=== PATIENT | female | born 1930 | race Native Hawaiian/Other Pacific Islander ===

== ENCOUNTER 2016-06-16 07:52 | Outpatient (CLI) | payer OTHER ==
[~2016-06-16 07:52] MED LIST: B-12500 MC1 SL; CIPRO500 MG PO; COMBIGAN0.2 MG/0.5 OPTH; DIAZ5TAB20 PO; FLUT0.05 NAS; GLIP10TA55 PO; GLIP2.5T3 PO; GLUCOPHAGE1000 MG PO; LEVAQUIN500 MG OR; LISI20TA11 PO; LISITAB PO; LOPRESSOR100 MG PO; LUMIGAN0.01 % OPTH; MECLIZINE25 MG OR; METO100T37 PO; METR250T19 PO; NEXIUM40 M1 PO; NITR100C56 PO; PANT40TA PO; PROM25TA52 PO; RANI150T78 PO
== END 2016-06-16 18:57 | disposition home or self-care (01) ==
LOC: CT 07:52
DX: N28.89 Other specified disorders of kidney and ureter (principal)

== ENCOUNTER 2017-01-28 08:15 | Outpatient (CLI) | payer OTHER ==
[2017-01-28 08:50] LABS: PLATELET COUNT 136 K/uL (152-353)
[2017-01-28 09:22] LABS: SODIUM 137 mmol/L (136-145)
== END 2017-01-28 19:06 | disposition home or self-care (01) ==
LOC: LABW 08:15
PROVIDERS: Physician Assistant
DX: E11.40 Type 2 diabetes mellitus with diabetic neuropathy, unspecified (principal); D69.6 Thrombocytopenia, unspecified; I10 Essential (primary) hypertension; E03.8 Other specified hypothyroidism
CPT/HCPCS: 36415; 80053; 80061; 82607; 83735; 84439; 84443; 85027

== ENCOUNTER 2017-06-30 10:13 | Outpatient (CLI) | payer OTHER | END 2017-06-30 11:15 | disposition home or self-care (01) | LOC: RAD 10:13 | DX: J40 Bronchitis, not specified as acute or chronic (principal) ==

== ENCOUNTER 2017-07-19 10:01 | Outpatient (CLI) | payer OTHER | END 2017-07-19 22:54 | disposition home or self-care (01) | LOC: LAB 10:01 | DX: R30.0 Dysuria (principal) | CPT/HCPCS: 87077; 87086; 87088; 87186 ==

== ENCOUNTER 2017-12-14 08:24 | Outpatient (CLI) | payer OTHER ==
[2017-12-14 08:46] LABS: PLATELET COUNT 148 K/uL (152-353)
[2017-12-14 09:08] LABS: POTASSIUM 3.8 mmol/L (3.6-5.2)
== END 2017-12-14 19:15 | disposition home or self-care (01) ==
LOC: LABW 08:24
PROVIDERS: Internal Medicine
DX: E11.9 Type 2 diabetes mellitus without complications (principal); R30.0 Dysuria
CPT/HCPCS: 36415; 80053; 80061; 81000; 82043; 82570; 83036; 84443; 85027; 87077; 87086; 87088; 87186

== ENCOUNTER 2018-01-20 22:03 | Emergency (ER) | payer OTHER ==
[~2018-01-20] VITALS: Ht 162.6 cm; Wt 61.7 kg
[2018-01-20 22:55] LABS: PLATELET COUNT 134 K/uL (152-353)
[2018-01-20 23:05] LABS: POTASSIUM 3.4 mmol/L (3.6-5.2)
[2018-01-21 01:50] VITALS: BP 163/69; TEMP 97.7
== END 2018-01-21 01:51 | disposition home or self-care (01) ==
LOC: ED 22:03
DX: K52.89 Other specified noninfective gastroenteritis and colitis (principal)
CPT/HCPCS: 36415; 51702; 80053; 81000; 85027; 87324; 87449; 96360; 96361; 96365; 99284

== ENCOUNTER 2018-01-26 12:22 | Outpatient (CLI) | payer OTHER | END 2018-01-26 20:36 | disposition home or self-care (01) | LOC: LAB 12:22 | DX: A09 Infectious gastroenteritis and colitis, unspecified (principal) | CPT/HCPCS: 82272; 83630; 87015; 87045; 87324; 87328; 87329; 87449; 87899 ==

== ENCOUNTER 2018-03-01 08:37 | Outpatient (CLI) | payer OTHER ==
[2018-03-01 09:16] LABS: PLATELET COUNT 154 K/uL (152-353)
[2018-03-01 09:46] LABS: POTASSIUM 3.8 mmol/L (3.6-5.2)
== END 2018-03-01 20:29 | disposition home or self-care (01) ==
LOC: LABW 08:37
PROVIDERS: Internal Medicine
DX: Z00.00 Encounter for general adult medical examination without abnormal findings (principal); E11.9 Type 2 diabetes mellitus without complications
CPT/HCPCS: 36415; 80053; 80061; 81000; 82043; 82570; 83036; 84443; 85027

== ENCOUNTER 2018-06-08 10:23 | Outpatient (CLI) | payer OTHER | END 2018-06-08 20:33 | disposition home or self-care (01) | LOC: LAB 10:23 | DX: N30.90 Cystitis, unspecified without hematuria (principal) | CPT/HCPCS: 87077; 87086; 87088; 87186 ==

== ENCOUNTER 2018-09-08 14:18 | Emergency (ER) | payer OTHER ==
[~2018-09-08] VITALS: Ht 162.6 cm; Wt 62.1 kg
[2018-09-08 14:39] VITALS: TEMP 98.1
[2018-09-08 16:15] LABS: PLATELET COUNT 142 K/uL (152-353)
[2018-09-08 18:05] VITALS: BP 168/74
== END 2018-09-08 18:13 | disposition home or self-care (01) ==
LOC: ED 14:18
PROVIDERS: Emergency Medicine
DX: N39.0 Urinary tract infection, site not specified (principal); W18.39XA Other fall on same level, initial encounter; Y92.89 Other specified places as the place of occurrence of the external cause
CPT/HCPCS: 80053; 81000; 85027; 99283

== ENCOUNTER 2018-09-13 02:19 | Inpatient (IN) | payer OTHER ==
[~2018-09-13] VITALS: Ht 162.6 cm; Wt 60.8 kg
[2018-09-13 02:29] VITALS: BP 112/87; TEMP 97.7
[2018-09-13 04:36] LABS: PLATELET COUNT 127 K/uL (152-353)
[2018-09-13 04:51] LABS: POTASSIUM 3.7 mmol/L (3.6-5.2)
[2018-09-13 07:00] VITALS: BP 172/82
[2018-09-13 08:00] VITALS: BP 168/80
[2018-09-13 16:50] VITALS: BP 100/60; TEMP 97.6; Ht 162.6 cm; Wt 60.8 kg
[2018-09-13] MEDS ORDERED: GABA400C2 PO ×3 (17:17→17:19)
[2018-09-13] MEDS ORDERED: GLIP10TA55 PO (17:20)
[2018-09-13] MEDS ORDERED: METFORMIN ER1000 MG PO (17:21)
[2018-09-13] MEDS ORDERED: METO100T37 PO (17:22)
[2018-09-13] MEDS ORDERED: LISI20TA11 PO (17:22)
[2018-09-13] MEDS ORDERED: PRINIVIL10 MG PO (17:24)
[2018-09-13 20:00] VITALS: BP 177/79; TEMP 98.7
[2018-09-14] VITALS (7 sets, daily range): BP systolic 124–216; BP diastolic 57–108; TEMP 97.6–98.1
[2018-09-14 04:17] LABS: PLATELET COUNT 136 K/uL (152-353)
[2018-09-14 04:28] LABS: POTASSIUM 3.6 mmol/L (3.6-5.2)
[2018-09-15] VITALS (7 sets, daily range): BP systolic 159–201; BP diastolic 64–100; TEMP 97.8–98.6
[2018-09-15 05:44] LABS: PLATELET COUNT 127 K/uL (152-353)
[2018-09-15 06:05] LABS: POTASSIUM 3.6 mmol/L (3.6-5.2)
[2018-09-16] VITALS (10 sets, daily range): BP systolic 160–220; BP diastolic 69–101; TEMP 97.8–98.4
[2018-09-16 05:17] LABS: PLATELET COUNT 121 K/uL (152-353)
[2018-09-16 05:24] LABS: POTASSIUM 3.2 mmol/L (3.6-5.2)
[2018-09-17 04:00] VITALS: BP 203/93; TEMP 98
[2018-09-17 04:26] LABS: PLATELET COUNT 183 K/uL (152-353)
[2018-09-17 05:12] LABS: POTASSIUM 3.2 mmol/L (3.6-5.2)
[2018-09-17 08:00] VITALS: BP 186/83; TEMP 97.5
[2018-09-17 12:00] VITALS: BP 161/84; TEMP 98.4
[2018-09-17 16:00] VITALS: BP 166/75; TEMP 97.9
[2018-09-17 20:10] VITALS: BP 129/75; TEMP 97.9
[2018-09-18] VITALS: BP 162/84; TEMP 98.9
[2018-09-18 04:00] VITALS: BP 164/71; TEMP 98.3
[2018-09-18 05:46] LABS: PLATELET COUNT 115 K/uL (152-353)
[2018-09-18 05:48] LABS: POTASSIUM 3.2 mmol/L (3.6-5.2)
[2018-09-18 08:00] VITALS: BP 173/69; TEMP 98.3
[2018-09-18 12:00] VITALS: BP 153/67; TEMP 97.9
[2018-09-18 16:00] VITALS: BP 127/56; TEMP 97.6
[2018-09-18 20:00] VITALS: BP 185/71; TEMP 99.1
[2018-09-19] VITALS: BP 168/73; TEMP 98.6
[2018-09-19 04:00] VITALS: BP 166/74; TEMP 98.1
[2018-09-19 05:09] LABS: PLATELET COUNT 148 K/uL (152-353)
[2018-09-19 05:18] LABS: POTASSIUM 5.3 mmol/L (3.6-5.2)
[2018-09-19 08:00] VITALS: BP 150/85; TEMP 98.1
[2018-09-19 12:00] VITALS: BP 204/71; TEMP 98
[2018-09-19 16:00] VITALS: TEMP 98
[2018-09-19 19:51] VITALS: TEMP 98.4
[2018-09-20] VITALS: TEMP 98.5
[2018-09-20 03:56] VITALS: TEMP 98.6
[2018-09-20 06:43] LABS: PLATELET COUNT 137 K/uL (152-353)
[2018-09-20 06:52] LABS: POTASSIUM 4.5 mmol/L (3.6-5.2)
[2018-09-20 08:00] VITALS: BP 206/83; TEMP 97.7
[2018-09-20 12:00] VITALS: TEMP 97.9
== END 2018-09-20 13:45 | disposition swing bed (61) | DRG 178 ==
LOC: ED 02:19 → MED/SURG 05:30
PROVIDERS: Internal Medicine; ADMIT Internal Medicine
DX: J69.0 Pneumonitis due to inhalation of food and vomit (principal); J44.0 Chronic obstructive pulmonary disease with (acute) lower respiratory infection; E86.0 Dehydration; E11.9 Type 2 diabetes mellitus without complications; K57.90 Diverticulosis of intestine, part unspecified, without perforation or abscess without bleeding; I10 Essential (primary) hypertension; I25.10 Atherosclerotic heart disease of native coronary artery without angina pectoris; E11.42 Type 2 diabetes mellitus with diabetic polyneuropathy; E03.8 Other specified hypothyroidism; E83.42 Hypomagnesemia
CPT/HCPCS: 36415; 80048; 80053; 83735; 85027; 87040; 96360; 96361; 96365; 96375; 96376; 99284; J0360; J0696; J1650; J1956; J2185; J2405; J2550; J2920; J2930; J3490

== ENCOUNTER 2018-09-20 13:46 | Inpatient (IN) | payer OTHER ==
[~2018-09-20] VITALS: Ht 162.6 cm; Wt 59.2 kg
[~2018-09-20 13:46] MED LIST changes: +GABA400C2 PO; +METFORMIN ER1000 MG PO; +PRINIVIL10 MG PO
[2018-09-20 14:42] VITALS: BP 100/60; TEMP 97.6; Ht 162.6 cm; Wt 59.2 kg
[2018-09-20 15:57] VITALS: BP 178/69
[2018-09-20 20:00] VITALS: BP 144/73; TEMP 98.8
[2018-09-21 08:00] VITALS: BP 148/77; TEMP 97.4
[2018-09-21 20:00] VITALS: BP 150/59; TEMP 98
[2018-09-22 08:00] VITALS: BP 143/66; TEMP 98
[2018-09-22 20:00] VITALS: BP 125/65; TEMP 97.9
[2018-09-23 08:00] VITALS: BP 153/85; TEMP 98.1
[2018-09-23 20:00] VITALS: BP 137/70; TEMP 97.8
[2018-09-24 08:00] VITALS: BP 145/66; TEMP 98
[2018-09-24 20:00] VITALS: BP 144/75; TEMP 98.2
[2018-09-25 08:00] VITALS: BP 144/75; TEMP 98.3
[2018-09-25 20:00] VITALS: BP 130/69; TEMP 98
[2018-09-26 08:00] VITALS: BP 139/69; TEMP 98.41
[2018-09-26 20:00] VITALS: BP 144/56; TEMP 98.3
[2018-09-27 08:00] VITALS: BP 120/66; TEMP 98.3
[2018-09-27 20:00] VITALS: BP 135/75; TEMP 98.6
[2018-09-28 08:00] VITALS: BP 140/68; TEMP 98.1
[2018-09-28 20:00] VITALS: BP 133/58; TEMP 98.5
[2018-09-29 08:04] VITALS: BP 133/73; TEMP 98.1
== END 2018-09-29 14:20 | disposition home health service (06) | DRG 555 ==
LOC: MED/SURG 13:46
PROVIDERS: ADMIT Internal Medicine
DX: M62.81 Muscle weakness (generalized) (principal); J18.8 Other pneumonia, unspecified organism; I10 Essential (primary) hypertension; J44.9 Chronic obstructive pulmonary disease, unspecified; E11.9 Type 2 diabetes mellitus without complications; R62.7 Adult failure to thrive

== ENCOUNTER 2018-10-16 07:46 | Outpatient (CLI) | payer OTHER ==
[2018-10-16 08:37] LABS: PLATELET COUNT 142 K/uL (152-353)
[2018-10-16 09:00] LABS: POTASSIUM 4.5 mmol/L (3.6-5.2)
== END 2018-10-16 23:20 | disposition home or self-care (01) ==
LOC: RAD 07:46 → LABW 07:46 → RAD 23:20
PROVIDERS: Internal Medicine
DX: J69.0 Pneumonitis due to inhalation of food and vomit (principal); Z79.899 Other long term (current) drug therapy
CPT/HCPCS: 36415; 80053; 83735; 84443; 85027

== ENCOUNTER 2018-10-27 11:07 | Emergency (ER) | payer OTHER ==
[~2018-10-27] VITALS: Ht 162.6 cm; Wt 59.0 kg
[2018-10-27 12:30] LABS: PLATELET COUNT 141 K/uL (152-353)
[2018-10-27 12:48] LABS: POTASSIUM 3.6 mmol/L (3.6-5.2)
[2018-10-27 13:20] VITALS: BP 147/98; TEMP 97.8
== END 2018-10-27 13:35 | disposition home or self-care (01) ==
LOC: ED 11:07
PROVIDERS: Family Medicine
DX: R53.1 Weakness (principal); R41.0 Disorientation, unspecified; I44.4 Left anterior fascicular block
CPT/HCPCS: 36415; 80053; 81000; 82550; 82553; 84443; 84484; 85027; 93005; 96360; 99284

== ENCOUNTER 2018-11-08 12:46 | Outpatient (CLI) | payer OTHER | END 2018-11-08 23:44 | disposition home or self-care (01) | LOC: LAB 12:46 | DX: R30.0 Dysuria (principal) | CPT/HCPCS: 81000; 87077; 87086; 87088; 87186 ==

== ENCOUNTER 2018-11-25 05:20 | Emergency (ER) | payer OTHER ==
[~2018-11-25] VITALS: Ht 162.6 cm; Wt 63.5 kg
[2018-11-25 06:26] LABS: PLATELET COUNT 112 K/uL (152-353)
[2018-11-25 06:30] LABS: POTASSIUM 3.8 mmol/L (3.6-5.2)
[2018-11-25 08:23] VITALS: BP 176/83; TEMP 98.3
== END 2018-11-25 08:35 | disposition home or self-care (01) ==
LOC: ED 05:20
PROVIDERS: Family Medicine
DX: I10 Essential (primary) hypertension (principal); R11.0 Nausea
CPT/HCPCS: 36415; 80053; 81000; 85027; 99283

== ENCOUNTER 2019-05-21 13:53 | Outpatient (CLI) | payer OTHER | END 2019-05-21 19:36 | disposition home or self-care (01) | LOC: RAD 13:53 | DX: M54.5 Low back pain (principal) ==

== ENCOUNTER 2019-10-31 11:39 | Outpatient (CLI) | payer OTHER ==
[2019-10-31 12:23] LABS: POTASSIUM 4.1 mmol/L (3.6-5.2)
== END 2019-10-31 21:32 | disposition home or self-care (01) ==
LOC: LABW 11:39
PROVIDERS: Internal Medicine Cardiovascular Disease
DX: Z79.899 Other long term (current) drug therapy (principal)
CPT/HCPCS: 36415; 80048

== ENCOUNTER 2020-01-01 11:01 | Outpatient (CLI) | payer OTHER | END 2020-01-01 19:22 | disposition home or self-care (01) | LOC: RAD 11:01 | DX: M51.16 Intervertebral disc disorders with radiculopathy, lumbar region (principal); M54.2 Cervicalgia ==

== ENCOUNTER 2020-01-24 13:25 | Outpatient (CLI) | payer OTHER | END 2020-01-24 20:10 | disposition home or self-care (01) | LOC: RAD 13:25 | DX: M54.5 Low back pain (principal); M81.8 Other osteoporosis without current pathological fracture; M51.37 Other intervertebral disc degeneration, lumbosacral region; W19.XXXA Unspecified fall, initial encounter ==

== ENCOUNTER 2020-02-06 12:34 | Outpatient (CLI) | payer OTHER | END 2020-02-06 22:26 | disposition home or self-care (01) | LOC: LABW 12:34 | DX: R30.0 Dysuria (principal) | CPT/HCPCS: 87077; 87086; 87088; 87186 ==

== ENCOUNTER 2020-02-19 10:42 | Outpatient (CLI) | payer OTHER ==
[2020-02-19 11:08] LABS: PLATELET COUNT 139 K/uL (152-353)
[2020-02-19 11:42] LABS: POTASSIUM 4.2 mmol/L (3.6-5.2)
== END 2020-02-19 20:20 | disposition home or self-care (01) ==
LOC: LABW 10:42
PROVIDERS: Internal Medicine
DX: N18.32 Chronic kidney disease, stage 3b (principal); N18.31 Chronic kidney disease, stage 3a; R53.83 Other fatigue; D64.9 Anemia, unspecified; E53.8 Deficiency of other specified B group vitamins
CPT/HCPCS: 36415; 80053; 81000; 82306; 82330; 82570; 82607; 82728; 82746; 83540; 83550; 83735; 84100; 84155; 84439; 84443; 85027; 85651; 86038

== ENCOUNTER 2020-02-27 11:57 | Outpatient (CLI) | payer OTHER ==
[2020-02-27 12:18] LABS: PLATELET COUNT 133 K/uL (152-353)
== END 2020-02-27 21:54 | disposition home or self-care (01) ==
LOC: LABW 11:57
PROVIDERS: Internal Medicine
DX: E11.9 Type 2 diabetes mellitus without complications (principal)
CPT/HCPCS: 36415; 80053; 83735; 85027

== ENCOUNTER 2020-08-26 13:27 | Inpatient (IN) | payer OTHER ==
[2020-08-26] VITALS (8 sets, daily range): BP systolic 135–176; BP diastolic 54–88; TEMP 98.3–99.6; Ht 162.6 cm; Wt 650.5 kg
[~2020-08-26] VITALS: Ht 162.6 cm; Wt 650.5 kg
[2020-08-26 14:44] LABS: PLATELET COUNT 130 K/uL (152-353)
[2020-08-27 04:13] VITALS: BP 155/77; TEMP 97.6
[2020-08-27 05:45] LABS: PLATELET COUNT 112 K/uL (152-353)
[2020-08-27 06:38] LABS: POTASSIUM 3.2 mmol/L (3.6-5.2)
[2020-08-27 08:00] VITALS: BP 149/68; TEMP 98.2
[2020-08-27 12:00] VITALS: BP 177/78; TEMP 98.3
[2020-08-27 16:00] VITALS: BP 158/60; TEMP 98
[2020-08-27 20:00] VITALS: BP 163/54; TEMP 98.6
[2020-08-28] VITALS: BP 151/58; TEMP 98
[2020-08-28 04:00] VITALS: BP 135/50; TEMP 98.4
[2020-08-28 05:10] LABS: PLATELET COUNT 107 K/uL (152-353)
[2020-08-28 05:32] LABS: POTASSIUM 3.5 mmol/L (3.6-5.2)
[2020-08-28 08:00] VITALS: BP 149/55; TEMP 98.8
[2020-08-28 12:00] VITALS: BP 141/78; TEMP 98.5
[2020-08-28 16:00] VITALS: BP 152/93; TEMP 98.7
[2020-08-28 20:00] VITALS: BP 145/61; TEMP 98.8
[2020-08-29] VITALS (7 sets, daily range): BP systolic 136–166; BP diastolic 51–64; TEMP 97–98.4
[2020-08-29 05:35] LABS: POTASSIUM 3.9 mmol/L (3.6-5.2)
[2020-08-29 05:52] LABS: PLATELET COUNT 109 K/uL (152-353)
[2020-08-30 03:42] VITALS: BP 159/69; TEMP 99.6
[2020-08-30 05:29] LABS: PLATELET COUNT 96 K/uL (152-353)
[2020-08-30 05:47] LABS: POTASSIUM 3.8 mmol/L (3.6-5.2)
[2020-08-30 08:00] VITALS: BP 105/69; TEMP 98.4
== END 2020-08-30 12:00 | disposition home or self-care (01) | DRG 392 ==
LOC: ED 13:27 → MED/SURG 16:40
PROVIDERS: Family Medicine; Internal Medicine Endocrinology, Diabetes & Metabolism; ADMIT Internal Medicine; ATTEND Internal Medicine
DX: K57.92 Diverticulitis of intestine, part unspecified, without perforation or abscess without bleeding (principal); I10 Essential (primary) hypertension; I25.10 Atherosclerotic heart disease of native coronary artery without angina pectoris; E11.42 Type 2 diabetes mellitus with diabetic polyneuropathy; E03.8 Other specified hypothyroidism; D69.6 Thrombocytopenia, unspecified; E87.6 Hypokalemia; D63.8 Anemia in other chronic diseases classified elsewhere
CPT/HCPCS: 36415; 80048; 80053; 81000; 82948; 83735; 85027; 87635; 96360; 96365; 96366; 96367; 96375; 99284; J0744; J2060; J2405; J3475; J3490; U0003

== ENCOUNTER 2020-09-10 15:12 | Emergency (ER) | payer OTHER ==
[~2020-09-10] VITALS: Ht 162.6 cm; Wt 59.0 kg
[2020-09-10 15:12] VITALS: TEMP 98.4
[2020-09-10 15:58] LABS: PLATELET COUNT 204 K/uL (152-353)
[2020-09-10 16:09] LABS: POTASSIUM 4.2 mmol/L (3.6-5.2)
[2020-09-10 18:00] VITALS: BP 135/67
== END 2020-09-10 18:39 | disposition home or self-care (01) ==
LOC: ED 15:15
PROVIDERS: Family Medicine
DX: R53.1 Weakness (principal); R53.83 Other fatigue
CPT/HCPCS: 80053; 81000; 85027; 99283

== ENCOUNTER 2020-09-15 09:38 | Inpatient (IN) | payer OTHER ==
[2020-09-16 08:12] LABS: PLATELET COUNT 153 K/uL (152-353)
[2020-09-16 08:34] LABS: POTASSIUM 5.4 mmol/L (3.6-5.2)
== END 2020-09-23 13:25 | disposition still patient (30) ==
LOC: PAVA 09:38
PROVIDERS: ADMIT Internal Medicine; ATTEND Internal Medicine
DX: K57.92 Diverticulitis of intestine, part unspecified, without perforation or abscess without bleeding (principal); M62.81 Muscle weakness (generalized); Z74.1 Need for assistance with personal care; R26.81 Unsteadiness on feet; R13.12 Dysphagia, oropharyngeal phase
CPT/HCPCS: 80053; 80061; 83036; 84439; 84443; 85027; 87081

== ENCOUNTER 2020-10-28 11:42 | Inpatient (IN) | payer OTHER ==
[~2020-10-28] VITALS: Ht 162.6 cm; Wt 60.5 kg
[2020-10-28 11:46] VITALS: BP 129/69; TEMP 97.4
[2020-10-28 13:00] VITALS: BP 131/66
[2020-10-28 14:30] VITALS: BP 136/71
[2020-10-28 15:24] LABS: PLATELET COUNT 117 K/uL (152-353)
[2020-10-28 15:27] LABS: POTASSIUM 4.7 mmol/L (3.6-5.2)
[2020-10-28 16:00] VITALS: BP 127/74
[2020-10-28 17:51] VITALS: BP 168/88; TEMP 98; Ht 162.6 cm; Wt 60.5 kg
--- NOTE | 2020-10-28 18:31 | NUR ---
NOTIFIED DR. PAYTON OF ORDERS FOR DEMEROL 25MG IV Q6 AND ZOFRAN 4MG IV Q6, DR. PAYTON ORDERS TO CHANGE DEMEROL AND ZOFRAN TO PRN AT THIS TIME
[2020-10-28 20:00] VITALS: BP 98/56; TEMP 97.9
[2020-10-28] MEDS ORDERED: AMLO2.5T PO (22:44)
[2020-10-28] MEDS ORDERED: GLIP10TA55 PO (22:49)
[2020-10-28] MEDS ORDERED: NEURONTIN800 MG PO (22:53)
[2020-10-28] MEDS ORDERED: PANTOPRAZOLE 40MG TA PO (22:57)
--- NOTE | 2020-10-28 22:59 | NUR ---
REC'D PT RESTING IN BED ALERT AND ORIENTED X4 @ 1850. C/O LOWER BACK PAIN. STATES "IT'S AN ONGOING PROBLEM." AT 2030 PT CONT TO REST IN BED ALERT. REQUESTED HELP WITH CHANGING INTO PJ'S. THIS SALESPERSON FLOWERS ASSISTED PT. ASSISTED PT TO STANDING POSITION. NOTED PT TO HAVE SOME WEAKNESS WHILE STANDING AND WAS UNABLE TO STAND FOR VERY LONG. ASSISTED PT WITH REMOVING PANTS AND PUTTING ON PJ BOTTOMS. PT ABLE TO CHANGE TOP. WHILE STANDING, NOTED PT HAD TO HOLD ONTO TO BED RAILING TO STEADY SELF. SNACK GIVEN PER REQEST. HS MEDS TAKEN WITHOUT DIFFICULTY. REMINDED PT TO CALL FOR ASSISTANCE WHEN NEEDING TO GET UP. PT VOICED UNDERSTANDING. CALL LIGHT IN EASY REACH.
[2020-10-28] MEDS ORDERED: TRAZ50TA36 PO (23:01)
[2020-10-28] MEDS ORDERED: PREDNISONE20 MG PO (23:06)
[2020-10-28] MEDS ORDERED: CYCLOBENZAPRINE5 MG PO (23:09)
[2020-10-28] MEDS ORDERED: ONDA4TAB3 PO (23:11)
--- NOTE | 2020-10-28 23:31 | NUR ---
NEW ORDERS NOTED FOR GABAPETIN 400MG AT 2100 BUT PT'S NORMAL DOSE WHICH SHE HAD ALREADY RECEIVED IS GABAPETING 800MG AT HS SO THE NEW ORDER WAS HELD FOR CLARIFICATION. ALSO NOTED NEW ORDER FOR LISINOPRIL 10MG AT HS BUT PT'S BP WAS 98/56 SO IT WAS HELD ALSO PER NURSING JUDGEMENT.
[2020-10-29] VITALS: BP 141/77; TEMP 97.6
--- NOTE | 2020-10-29 02:20 | NUR ---
PT RESTING IN SEMI-SIDHU'S POSITION WITH EYES CLOSED. NO C/O VOICED. NO S/S OF DISTRESS. CALL LIGHT IN EASY REACH.
[2020-10-29 04:00] VITALS: BP 122/60; TEMP 97.9
--- NOTE | 2020-10-29 05:04 | NUR ---
PT CONTINUES TO REST WITH EYES CLOSED. HAS NOT CALLED FOR ASSISTANCE ALL NIGHT. EACH TIME PT WAS CHECKED ON SHE APPEARED TO BE SLEEPING. NO S/S OF DISTRESS AT THIS TIME. CALL LIGHT WITHIN EASY REACH.
[2020-10-29 08:00] VITALS: BP 104/61; TEMP 98.3
--- NOTE | 2020-10-29 08:30 | NUR ---
PT GLIPIZIDE ORDERED IS 2.5, MED AVAIL IS 5MG ER. VERIFIED WITH JEIMY IN PHARMACY THAT MED COULD NOT BE CRUSHED OR BROKEN. MED HELD FOR CLARIFICATION ORDER. [id number].
[2020-10-29 09:07] LABS: PLATELET COUNT 128 K/uL (152-353)
--- NOTE | 2020-10-29 11:13 | NUR ---
DR. FRAZIER NOTIFIED OF CORRECTED HOME MED LIST AND NEED FOR REVIEW.
[2020-10-29 12:00] VITALS: BP 109/53; TEMP 98.2
--- NOTE | 2020-10-29 12:00 | NUR ---
PT I/P STATUS AT THIS TIME.
[2020-10-29 16:00] VITALS: BP 98/51; TEMP 98.3
[2020-10-29 20:19] VITALS: BP 100/58; TEMP 98.4
[2020-10-30 00:05] VITALS: BP 129/55; TEMP 98.3
--- NOTE | 2020-10-30 01:46 | NUR ---
LATE ENTRY 10/29/20 1900: PATIENT WAS REPOSITIONED IN BED. PATIENT WAS ASSESED UP IN THE BED. PILLOW PLACED BEHIND HER BACK FOR COMFORT MEASURES. NO WOUNDS NOTED. LUNGS ARE CLEAR AT THE APEX BUT MORE DIMMISHED AT THE BABSES. THE PATIENT CANNOT TAKE A DEEP BREATH WITHOUT COUGHING AND HAVING SIGNIFICANT PAIN. 2100: PATIENT WAS HELPED TO THE BSC. PATIENT WAS GIVEN NIGHTLY PO MEDICATIONS. 2300: PATIENT ASKED FOR SOMETHING FOR PAIN. PATIENT WAS GIVE PRN NORCO. AT 2330 THE PATIENT WAS RESTING WITH EYES CLOSED AND BREATHING IS REGULAR NON LABORED
--- NOTE | 2020-10-30 03:30 | NUR ---
PATIENT IS RESTING QUIETLY, EYES ARE CLOSED AND BREATHING IS REGULAR NON LABORED
[2020-10-30 04:10] VITALS: BP 114/55; TEMP 98.4
--- NOTE | 2020-10-30 06:25 | NUR ---
patient is resting in bed. eyes closed and breathing is regular non labored
[2020-10-30 06:33] LABS: PLATELET COUNT 132 K/uL (152-353)
[2020-10-30 06:39] LABS: POTASSIUM 5.3 mmol/L (3.6-5.2)
[2020-10-30 08:00] VITALS: BP 124/65; TEMP 97.9
--- NOTE | 2020-10-30 09:32 | NUR ---
SPOKE TO MD REGARDING PT STATUS AND ORDERS. CHART REVIEWED MD TO CLARIFY GABAPENTIN ORDERS FOR PM DOSE AND NEW ORDERS GIVEN TO CHAGE DIET TO REGULAR
[2020-10-30 12:14] VITALS: BP 146/87; TEMP 97.5
[2020-10-30 16:00] VITALS: BP 139/72; TEMP 97.6
--- NOTE | 2020-10-30 16:28 | NUR ---
10/25/20 0400 [facility] ASSISTED TO BATHROOM LOOSE STOOL.ASSISTED BACK TO BED.CALL LIGHT WITHIN REACH.CC
--- NOTE | 2020-10-30 17:22 | NUR ---
10/30/20 1715 ASSISTED OUT OF BED TO BEDSIDE COMMODE VOIDED 400ML YELLOW URINE.ASSISTED BACK TO BED PT STATES SHE FEELS ALITTLE BETTER SINCE EARILER.CALL LIGHT WITHIN REACH.CC
[2020-10-30 20:00] VITALS: BP 154/76; TEMP 98
--- NOTE | 2020-10-30 23:33 | NUR ---
PATIENT ASKED FOR PRN COUGH MEDICATION. THE WRITED TAUGHT THE PATIENT HOW TO "SPLINT" WITH A PILLOW WHEN COUGHING
[2020-10-31] VITALS: BP 177/92; TEMP 98.1
[2020-10-31 04:00] VITALS: BP 128/64; TEMP 98
--- NOTE | 2020-10-31 06:36 | NUR ---
PATIENT IS RESTING QUIETLY EYES CLOSED AND BREATHING IS REGULAR AND NON LABORED
[2020-10-31 08:00] VITALS: BP 128/74
[2020-10-31] MEDS ORDERED: DOCU100C10 PO (11:15)
[2020-10-31] MEDS ORDERED: BENZONATATE100 MG PO (11:15)
[2020-10-31] MEDS ORDERED: GABA400C2 PO (11:17)
[2020-10-31] MEDS ORDERED: GLUCOTROL XL 5MG TAB PO (11:17)
[2020-10-31] MEDS ORDERED: GABA100C2 PO (11:17)
[2020-10-31] MEDS ORDERED: HYDR5TAB9 PO (11:18)
[2020-10-31] MEDS ORDERED: PRED10TA27 PO (11:19)
[2020-10-31] MEDS ORDERED: INSUINJ20 SC (11:19)
[2020-10-31] MEDS ORDERED: CEFD300C2 PO (11:20)
--- NOTE | 2020-10-31 12:25 | NUR ---
CALLED REPORT TO TIERRA LEACH ON A [facility] AT [facility].
--- NOTE | 2020-10-31 14:42 | NUR ---
PT GIVEN DISCHARGE INSTRUCTIONS. PT TO CON'T CARE AT [place]. PT VERBALIZES UNDERSTANDING. PT INFORMED SHE WILL START A NEW ANTIBIOTICS BY MOUTH FOR TREATMENT OF CURRENT UTI, OMNICEF. PT DISCHARGED VIA W/C ACCOMPANIED BY ANIKET CHOW.
== END 2020-11-01 00:54 | DRG 92 ==
LOC: ED 11:42 → MED/SURG 17:13
PROVIDERS: Family Medicine; Internal Medicine; ADMIT Internal Medicine Endocrinology, Diabetes & Metabolism; ATTEND Internal Medicine Endocrinology, Diabetes & Metabolism
DX: G92 Toxic encephalopathy (principal); N39.0 Urinary tract infection, site not specified; M35.3 Polymyalgia rheumatica; I10 Essential (primary) hypertension; K21.9 Gastro-esophageal reflux disease without esophagitis; B96.20 Unspecified Escherichia coli [E. coli] as the cause of diseases classified elsewhere; W01.198A Fall on same level from slipping, tripping and stumbling with subsequent striking against other object, initial encounter; E03.8 Other specified hypothyroidism; M54.5 Low back pain; E11.42 Type 2 diabetes mellitus with diabetic polyneuropathy; R53.81 Other malaise; Z91.81 History of falling; Y92.89 Other specified places as the place of occurrence of the external cause
CPT/HCPCS: 36415; 80048; 80053; 81000; 85027; 87077; 87086; 87088; 87186; 87635; 94760; 96374; 99284; J1956; J1650; J1885; J2175; J2405; U0003

== ENCOUNTER 2020-10-31 11:22 | Inpatient (IN) | payer OTHER ==
[~2020-10-31 11:22] MED LIST changes: +AMLO2.5T PO; +BENZONATATE100 MG PO; +CEFD300C2 PO; +CYCLOBENZAPRINE5 MG PO; +DOCU100C10 PO; +GABA100C2 PO; +GLUCOTROL XL 5MG TAB PO; +HYDR5TAB9 PO; +INSUINJ20 SC; +NEURONTIN800 MG PO; +ONDA4TAB3 PO; +PANTOPRAZOLE 40MG TA PO; +PRED10TA27 PO; +PREDNISONE20 MG PO; +TRAZ50TA36 PO
== END 2020-11-23 08:00 | disposition still patient (30) ==
LOC: PAVA 11:22
PROVIDERS: ADMIT Internal Medicine; ATTEND Internal Medicine

== ENCOUNTER 2020-11-23 09:00 | Inpatient (IN) | payer OTHER | END 2020-12-24 09:08 | disposition still patient (30) | LOC: PAVA 09:00 | PROVIDERS: ADMIT Internal Medicine; ATTEND Internal Medicine ==

== ENCOUNTER 2020-12-05 09:51 | Outpatient (CLI) | payer OTHER ==
[2020-12-05 10:12] LABS: PLATELET COUNT 109 K/uL (152-353)
[2020-12-05 23:43] LABS: POTASSIUM 3.8 mmol/L (3.6-5.2)
== END 2020-12-05 23:06 | disposition home or self-care (01) ==
LOC: LAB 09:51
PROVIDERS: ATTEND Internal Medicine
DX: K57.92 Diverticulitis of intestine, part unspecified, without perforation or abscess without bleeding (principal); E11.40 Type 2 diabetes mellitus with diabetic neuropathy, unspecified; I25.10 Atherosclerotic heart disease of native coronary artery without angina pectoris; R62.7 Adult failure to thrive; I10 Essential (primary) hypertension
CPT/HCPCS: 80053; 82306; 82330; 82607; 82728; 82746; 83540; 83550; 83735; 84100; 84439; 84443; 85027; 85652; 86038

== ENCOUNTER → 2020-12-07 | Outpatient (CLI) | payer OTHER | LOC: LAB 08:47 | PROVIDERS: ATTEND Internal Medicine | DX: K57.92 Diverticulitis of intestine, part unspecified, without perforation or abscess without bleeding (principal); E11.40 Type 2 diabetes mellitus with diabetic neuropathy, unspecified; I25.10 Atherosclerotic heart disease of native coronary artery without angina pectoris; R62.7 Adult failure to thrive; I10 Essential (primary) hypertension | CPT/HCPCS: 36415; 85652 ==

== ENCOUNTER → 2020-12-08 | Outpatient (CLI) | payer OTHER | LOC: LAB 21:04 | PROVIDERS: ATTEND Internal Medicine | DX: R82.90 Unspecified abnormal findings in urine (principal); R80.9 Proteinuria, unspecified | CPT/HCPCS: 82570; 84155; 87088 ==

== ENCOUNTER 2020-12-24 09:48 | Inpatient (IN) | payer OTHER | END 2021-01-23 08:11 | disposition still patient (30) | LOC: PAVA 09:48 | PROVIDERS: ADMIT Internal Medicine; ATTEND Internal Medicine ==

== ENCOUNTER 2021-01-09 13:46 | Outpatient (CLI) | payer OTHER | END 2021-01-09 19:20 | disposition home or self-care (01) | LOC: RAD 13:46 | PROVIDERS: ATTEND Internal Medicine | DX: R05 Cough (principal) ==

== ENCOUNTER 2021-02-06 13:59 | Outpatient (CLI) | payer OTHER | END 2021-02-06 19:57 | disposition home or self-care (01) | LOC: RAD 13:59 | PROVIDERS: ATTEND Internal Medicine | DX: R09.89 Other specified symptoms and signs involving the circulatory and respiratory systems (principal) ==

== ENCOUNTER 2021-03-25 09:08 | Inpatient (IN) | payer OTHER | END 2021-04-25 07:56 | disposition still patient (30) | LOC: PAVA 09:08 | PROVIDERS: ADMIT Internal Medicine; ATTEND Internal Medicine ==

== ENCOUNTER 2021-04-25 08:16 | Inpatient (IN) | payer OTHER | END 2021-05-26 08:52 | disposition still patient (30) | LOC: PAVA 08:16 | PROVIDERS: ADMIT Internal Medicine; ATTEND Internal Medicine ==

== ENCOUNTER 2021-05-26 10:52 | Inpatient (IN) | payer OTHER | END 2021-06-23 08:55 | disposition still patient (30) | LOC: PAVA 10:52 | PROVIDERS: ADMIT Internal Medicine; ATTEND Internal Medicine ==

== ENCOUNTER 2021-06-23 11:12 | Inpatient (IN) | payer OTHER | END 2021-07-24 08:10 | disposition still patient (30) | LOC: PAVA 11:12 | PROVIDERS: ADMIT Internal Medicine; ATTEND Internal Medicine ==

== ENCOUNTER 2021-07-24 08:35 | Inpatient (IN) | payer OTHER | END 2021-08-23 10:55 | disposition still patient (30) | LOC: PAVA 08:35 | PROVIDERS: ADMIT Internal Medicine; ATTEND Internal Medicine ==

== ENCOUNTER 2021-08-23 03:50 | Inpatient (IN) | payer OTHER ==
[2021-09-09 15:29] LABS: PLATELET COUNT 162 K/uL (152-353)
[2021-09-09 15:52] LABS: POTASSIUM 3.8 mmol/L (3.6-5.2)
== END 2021-09-23 09:26 | disposition still patient (30) ==
LOC: PAVA 03:50
PROVIDERS: ADMIT Internal Medicine; ATTEND Internal Medicine
CPT/HCPCS: 80053; 83036; 84439; 84443; 85027; 87070; 87077; 87185; 87186

== ENCOUNTER 2021-08-23 05:10 | Outpatient (CLI) | payer OTHER ==
[2021-08-23 05:26] LABS: PLATELET COUNT 97 K/uL (152-353)
== END 2021-08-23 19:03 | disposition home or self-care (01) ==
LOC: LAB 05:10
PROVIDERS: ATTEND Internal Medicine
DX: R60.0 Localized edema (principal); M19.90 Unspecified osteoarthritis, unspecified site
CPT/HCPCS: 85027; 85652

== ENCOUNTER → 2021-08-31 | Emergency (ER) | payer OTHER ==
[~2021-08-31] VITALS: Ht 162.6 cm; Wt 68.0 kg
[2021-08-31 20:55] LABS: PLATELET COUNT 84 K/uL (152-353)
[2021-08-31 20:59] LABS: POTASSIUM 3.6 mmol/L (3.6-5.2)
[2021-08-31 23:50] VITALS: BP 131/63; TEMP 98.3
== END ==
LOC: ED 20:07
PROVIDERS: Emergency Medicine Emergency Medical Services
DX: R74.8 Abnormal levels of other serum enzymes (principal); N39.0 Urinary tract infection, site not specified; R10.815 Periumbilic abdominal tenderness
CPT/HCPCS: 80053; 80074; 81000; 82150; 83690; 85027; 87086; 87088; 96360; 96365; 96375; 99284; J0696; J2405

== ENCOUNTER 2021-09-02 09:29 | Outpatient (CLI) | payer OTHER | END 2021-09-02 18:52 | disposition home or self-care (01) | LOC: US 09:29 | PROVIDERS: ATTEND Internal Medicine | DX: R11.0 Nausea (principal); R10.84 Generalized abdominal pain; R94.5 Abnormal results of liver function studies ==

== ENCOUNTER 2021-09-03 07:10 | Outpatient (CLI) | payer OTHER ==
[2021-09-03 07:41] LABS: POTASSIUM 3.2 mmol/L (3.6-5.2)
[2021-09-03 08:20] LABS: PLATELET COUNT 75 K/uL (152-353)
== END 2021-09-03 19:00 | disposition home or self-care (01) ==
LOC: LAB 07:10
PROVIDERS: ATTEND Internal Medicine
DX: I10 Essential (primary) hypertension (principal)
CPT/HCPCS: 80053; 82248; 85027

== ENCOUNTER 2021-09-03 09:48 | Emergency (ER) | payer OTHER ==
[~2021-09-03] VITALS: Ht 162.6 cm; Wt 68.0 kg
[2021-09-03 13:48] VITALS: TEMP 99.2
[2021-09-03 14:25] VITALS: BP 151/78
== END 2021-09-03 14:35 | disposition short-term general hospital (02) ==
LOC: ED 09:48
DX: R94.5 Abnormal results of liver function studies (principal); Z87.898 Personal history of other specified conditions; Z11.52 Encounter for screening for COVID-19
CPT/HCPCS: 83690; 87635; 93005; 96374; 99284; J2405; U0003

== ENCOUNTER 2021-10-23 07:51 | Inpatient (IN) | payer OTHER | END 2021-11-23 09:23 | disposition still patient (30) | LOC: PAVA 07:51 | PROVIDERS: ADMIT Internal Medicine; ATTEND Internal Medicine ==

== ENCOUNTER 2021-11-13 09:39 | Outpatient (CLI) | payer OTHER | END 2021-11-13 19:03 | disposition home or self-care (01) | LOC: LAB 09:39 | PROVIDERS: ATTEND Internal Medicine | DX: N39.0 Urinary tract infection, site not specified (principal) | CPT/HCPCS: 81000 ==

== ENCOUNTER 2021-11-23 11:06 | Outpatient (CLI) | payer OTHER | END 2021-11-23 18:59 | disposition home or self-care (01) | LOC: LAB 11:06 | PROVIDERS: ATTEND Internal Medicine | DX: E11.40 Type 2 diabetes mellitus with diabetic neuropathy, unspecified (principal) | CPT/HCPCS: 83036 ==

== ENCOUNTER 2021-11-23 14:45 | Inpatient (IN) | payer OTHER | END 2021-12-24 08:58 | disposition still patient (30) | LOC: PAVA 14:45 | PROVIDERS: ADMIT Internal Medicine; ATTEND Internal Medicine ==